=== PATIENT | female | born 1995 | race African-American/Black ===

== ENCOUNTER 2021-01-01 11:13 | Emergency (ER) | payer OTHER ==
[2021-01-01 11:32] VITALS: BP 132/87
[2021-01-01 11:43] LABS: MUDS CUTOFF CONCENTRATIONS CUTOFF CONC BELOW:
[2021-01-01 11:47] LABS: BILIRUBIN,URINE NEGATIVE (NEGATIVE); GLUCOSE, URINE (UA) NEGATIVE (NEGATIVE); KETONES,URINE (UA) NEGATIVE (NEGATIVE); LEUKOCYTE ESTERASE, URINE TRACE (NEGATIVE); NITRITE,URINE NEGATIVE (NEGATIVE); OCCULT BLOOD,URINE TRACE-LYSE (NEGATIVE); PH,URINE 6.5 PH (5.0-7.5); PROTEIN,URINE NEGATIVE (NEGATIVE); UROBILINOGEN,URINE 0.2 (NORMAL) E.U./dL (NORMAL)
[2021-01-01 11:49] LABS: CLARITY,URINE HAZY (CLEAR); HCG UR QUAL NEGATIVE
--- NOTE | 2021-01-01 11:53 | ED Physician Documentation ---
History of Present Illness - Stated complaint Stated Complaint: R ARM LAC/MHE - Chief complaint Chief Complaint: MHE - Additonal information Additional information: 25 -year-old female presents to the emergency department after cutting her left forearm this a.m. She reports that last night she had night terrors and when she woke up she felt numb therefore she cut herself. She received ported this to her command and they brought her to the emergency department. She does have a longstanding history of depression but is not medicated with any medicines at this time. She has been hospitalized for depression in the past but did not find hospitalization or behavioral health helpful. She denies drugs or alcohol. She has quite a flat affect and is not very forthcoming with information. quiet and tearful I have discussed with her that we will likely look to transfer her to [facility] for behavioral health services. 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 Review of Systems Constitutional: reports: Reviewed and negative Eyes: reports: Reviewed and negative Ears: reports: Reviewed and negative Nose: reports: Reviewed and negative Throat: reports: Reviewed and negative Cardiac: reports: Reviewed and negative Respiratory: reports: Reviewed and negative GI: reports: Reviewed and negative : reports: Reviewed and negative Skin: reports: Laceration (s) (superficial cutting) Neurologic: reports: Reviewed and negative Psychiatric: reports: Depressed, Insomnia. denies: Hallucinations, Delusions Endocrine: reports: Reviewed and negative PD PAST MEDICAL HISTORY - Present Medications Home Medications: Ambulatory Orders Medication Instructions Recorded Confirmed No Known Home Medications 01/01/21 01/01/21 - Allergies Allergies/Adverse Reactions: Allergies Allergy/AdvReac Type Severity Reaction Status Date / Time No Known Drug Allergies Allergy Verified 01/01/21 11:32 PD ED PE EXPANDED - General General: Alert, Anxious, Other (tearful, crying, withdrawn) - Neck Neck: Supple w/out meningeal sx. No: Adenopathy - Cardiac Cardiac: Regular Rate, Regular Rhythm, Radial strong equal, Pedal strong equal, Cap refill < 2 sec. No: Murmur Present - Respiratory Respiratory: Clear to ausultation angelica. No: Distress, Labored - Abdomen Abdomen: Normal Bowel sounds. No: Tender to palpation - Derm Derm: Normal color, Warm and dry - Extremities Extremities: Normal. No: Deformity, Tenderness - Neuro Neuro: Alert and Oriented X 3, CNII-XII intact - Psych Psych: Depressed, Tearful, Withdrawn, Poor eye contact, Anxious Results - Vitals Vitals: Vital Signs - 24 hr 01/01/21 11:25 Temperature 36.2 C L Heart Rate 85 Respiratory 20 Rate Blood Pressure 132/87 H O2 Saturation 100 Oxygen O2 Source Room air - Labs Labs: Laboratory Tests 01/01/21 01/01/21 01/01/21 11:40 11:51 11:51 WBC 7.3 RBC 4.20 Hgb 12.9 Hct 38.7 MCV 92.1 MCH 30.7 MCHC 33.3 RDW 12.4 Plt Count 197 MPV 9.8 Neut # (Auto) 5.2 Lymph # (Auto) 1.5 [place] # (Auto) 0.5 Eos # (Auto) 0.0 Baso # (Auto) 0.0 Absolute Nucleated RBC 0.00 Nucleated RBC % 0.0 Sodium 138 Potassium 3.5 Chloride 102 Carbon Dioxide 25 Anion Gap 11.0 BUN 11 Creatinine 0.8 Estimated GFR (MDRD) 87 L Glucose 97 Calcium 9.9 Total Bilirubin 1.1 H AST 18 ALT 17 Alkaline Phosphatase 41 L Total Protein 8.1 Albumin 4.4 Globulin 3.7 Albumin/Globulin Ratio 1.2 Lipase 25 TSH Urine Color YELLOW Urine Clarity HAZY Urine pH 6.5 Ur Specific [place] 1.020 Urine Protein NEGATIVE Urine Glucose (UA) NEGATIVE Urine Ketones NEGATIVE Urine Occult Blood TRACE-LYSE Urine Nitrite NEGATIVE Urine Bilirubin NEGATIVE Urine Urobilinogen 0.2 (NORMAL) Ur Leukocyte Esterase TRACE H Urine RBC None Seen Urine WBC 11-25 H Urine WBC Clumps PRESENT Ur Squamous Epith Cells RARE Squamous Urine Bacteria Rare Ur Microscopic Review INDICATED Urine Culture Comments INDICATED Urine HCG, Qual NEGATIVE Salicylates < 6.0 Urine Opiates Screen NEGATIVE Ur Oxycodone Screen NEGATIVE Urine Methadone Screen NEGATIVE Ur Propoxyphene Screen NEGATIVE Acetaminophen < 10 L Ur Barbiturates Screen NEGATIVE Ur Tricyclics Screen NEGATIVE Ur Phencyclidine Scrn NEGATIVE Ur Amphetamine Screen NEGATIVE U Methamphetamines Scrn NEGATIVE U Benzodiazepines Scrn NEGATIVE Urine Cocaine Screen NEGATIVE U Cannabinoids Screen NEGATIVE Ethyl Alcohol < 5.0 01/01/21 11:51 WBC RBC Hgb Hct MCV MCH MCHC RDW Plt Count MPV Neut # (Auto) Lymph # (Auto) [place] # (Auto) Eos # (Auto) Baso # (Auto) Absolute Nucleated RBC Nucleated RBC % Sodium Potassium Chloride Carbon Dioxide Anion Gap BUN Creatinine Estimated GFR (MDRD) Glucose Calcium Total Bilirubin AST ALT Alkaline Phosphatase Total Protein Albumin Globulin Albumin/Globulin Ratio Lipase TSH 0.71 Urine Color Urine Clarity Urine pH Ur Specific [place] Urine Protein Urine Glucose (UA) Urine Ketones Urine Occult Blood Urine Nitrite Urine Bilirubin Urine Urobilinogen Ur Leukocyte Esterase Urine RBC Urine WBC Urine WBC Clumps Ur Squamous Epith Cells Urine Bacteria Ur Microscopic Review Urine Culture Comments Urine HCG, Qual Salicylates Urine Opiates Screen Ur Oxycodone Screen Urine Methadone Screen Ur Propoxyphene Screen Acetaminophen Ur Barbiturates Screen Ur Tricyclics Screen Ur Phencyclidine Scrn Ur Amphetamine Screen U Methamphetamines Scrn U Benzodiazepines Scrn Urine Cocaine Screen U Cannabinoids Screen Ethyl Alcohol PD MEDICAL DECISION MAKING - ED course Complexity details: reviewed results, re-evaluated patient, d/w patient ED course: 25-year-old female who is active [employer] comes to the emergency department on the advice of her command after she cut herself this a.m. when she reported she had a night terror. She does endorse a longstanding history of depression but is not currently on any medication or seeking therapy. History is somewhat difficult to obtain she is quite tearful withdrawn and has a flat affect. Screening labs are unremarkable. Patient was seen by social work. After lengthy discussion and did offer to be seen at [facility] versus outpatient treatment patient is serenity for safety and desires to be discharged home. Her CO with her will accompany her home and remain through this weekend. [place] to initiate medication management. Patient feels safe for discharge home contracts for safety and does not desire to harm herself or anybody else. Please see the extensive social work notes. Departure - Departure Disposition: 01 Home, Self Care Clinical Impression: Self-cutting of wrist Depression Qualifiers: Depression Type: major depressive disorder Major depression recurrence: unspecified whether recurrent Active/Remission status: currently active Major depression episode severity: unspecified Qualified Code(s): F32.9 - Major depressive disorder, single episode, unspecified Instructions: ED Depression Comments: Please continue [place]. Long-term management of depression often involves talk therapy as well as medications. If at any point you begin to feel hopeless depressed or have thoughts of self-harm please call 911, discuss with your commanding officer or return immediately to the emergency department.
[2021-01-01 11:54] LABS: BASOPHILS % (AUTO) 0.3 %; EOSINOPHILS % (AUTO) 0.6 %; HCT - HEMATOCRIT 38.7 % (37.0-47.0); HGB - HEMOGLOBIN 12.9 g/dL (12.0-16.0); LYMPHOCYTES # (AUTO) 1.5 10^3/uL (1.5-3.5); LYMPHOCYTES % (AUTO) 20.7 %; MEAN CORPUSCULAR HEMOGLOBIN 30.7 pg (27.0-31.0); MEAN CORPUSCULAR HGB CONC 33.3 g/dL (32.0-36.0); MEAN CORPUSCULAR VOLUME 92.1 fL (81.0-99.0); MEAN PLATELET VOLUME 9.8 fL (7.9-10.8); MONOCYTES # (AUTO) 0.5 10^3/uL (0.0-1.0); NEUTROPHILS # (AUTO) 5.2 10^3/uL (1.5-6.6); NEUTROPHILS % (AUTO) 71.1 %; PLT - PLATELET COUNT 197 10^3/uL (130-450); RED CELL DISTRIBUTION WIDTH 12.4 % (12.0-15.0); WHITE BLOOD COUNT 7.3 x10^3/uL (4.8-10.8)
[2021-01-01 12:00] LABS: AMPHETAMINE SCREEN,URINE NEGATIVE (NEGATIVE); BARBITURATE SCREEN,UR NEGATIVE (NEGATIVE); BENZODIAZEPINES SCREEN, URINE NEGATIVE (NEGATIVE); COCAINE SCREEN URINE NEGATIVE (NEGATIVE); METHADONE SCREEN, URINE NEGATIVE (NEGATIVE); METHAMPHETAMINES SCREEN, URINE NEGATIVE (NEGATIVE); OPIATE SCREEN, URINE NEGATIVE (NEGATIVE); OXYCODONE SCREEN, URINE NEGATIVE (NEGATIVE); PROPOXYPHENE SCREEN, URINE NEGATIVE (NEGATIVE); THC CANNABINOID SCREEN, URINE NEGATIVE (NEGATIVE); TRICYCLIC ANTIDEPRESSANT,URINE NEGATIVE (NEGATIVE)
[2021-01-01 12:13] LABS: BACTERIA,URINE Rare /HPF (None Seen); RBC,URINE None Seen /HPF (0-5); SQUAMOUS EPITHELIAL CELL,UR RARE Squamous (<= Few); WBC CLUMPS,URINE PRESENT
[2021-01-01 12:15] LABS: ACETAMINOPHEN < 10 ug/mL (10-30); ALBUMIN 4.4 g/dL (3.2-5.5); ALBUMIN/GLOBULIN RATIO 1.2 (1.0-2.2); ALKALINE PHOSPHATASE 41 IU/L (42-121); ALT ALANINE AMINOTRANSFERASE 17 IU/L (10-60); AST ASPARTATE AMINOTRANSFERASE 18 IU/L (10-42); BILIRUBIN,TOTAL 1.1 mg/dL (0.2-1.0); BUN - BLOOD UREA NITROGEN 11 mg/dL (6-20); CALCIUM 9.9 mg/dL (8.5-10.3); CARBON DIOXIDE - CO2 25 mmol/L (21-32); CHLORIDE 102 mmol/L (101-111); CREATININE 0.8 mg/dL (0.4-1.0); ETOH - ETHANOL < 5.0 mg/dL; GFR - MDRD 87 (>89); GLUCOSE 97 mg/dL (70-100); LIPASE 25 U/L (22-51); POTASSIUM 3.5 mmol/L (3.5-5.0); SALICYLATE < 6.0 mg/dL; SODIUM 138 mmol/L (135-145); TOTAL PROTEIN 8.1 g/dL (6.7-8.2)
== END 2021-01-01 14:19 | disposition home or self-care (01) ==
LOC: ED 11:13
DX: S61.512A Laceration without foreign body of left wrist, initial encounter (principal); X78.1XXA Intentional self-harm by knife, initial encounter; X78.8XXA Intentional self-harm by other sharp object, initial encounter; F32.9 Major depressive disorder, single episode, unspecified
CPT/HCPCS: 80053; 80306; 80307; 80320; 80329; 81001; 81003; 81025; 83690; 84443; 85025; 87077; 87086; 99283

== ENCOUNTER 2022-03-07 21:38 | Emergency (ER) | payer OTHER ==
[2022-03-07] MEDS ORDERED: SODIUM CHLORIDE 0.9% 1,000 ML IV STA (22:56)
[2022-03-07] MEDS ORDERED: KETOROLAC 30 MG/ML VIAL IVP STA (23:00)
--- NOTE | 2022-03-07 23:16 | ED Physician Documentation ---
History of Present Illness - Stated complaint Stated Complaint: ARM AND SPINE NUMBNESS - Chief complaint Chief Complaint: Neuro - History obtained from History obtained from: Patient - Additonal information Additional information: Patient is a 26-year-old female presenting for evaluation of pain numbness and weakness in her right arm which is been present since Monday. Patient reports feeling a pain from her neck into her right arm that extends to the elbow Which started on Monday. She additionally reports feeling numbness to the entirety of the right arm and weakness since Monday. She notes being at the [employer] this weekend and was trying to use a fork and knife and was having difficulty using the utensils with her right hand. She denies any known trauma or injury. She did clean her house but denies doing anything strenuous. She reports having a similar episode when she was 16 years old but states the numbness and weakness was worse in the right arm Than it is currently. She was hospitalized in [place] for 1 month and believes she received steroids. She believes there was a "spot" on her spine. She has not had any other symptoms since then and is unsure of what she was diagnosed with if anything. I asked if she had ever heard of multiple sclerosis and patient denies ever hearing this term. She denies a history of autoimmune conditions in other family members.She does report having a Generalized Throbbing headache since Monday.She denies any leg weakness,Saddle anesthesia, Lower back pain, bowel or bladder incontinence.Her at the bedside states he pinched her arm really hard on Monday and she was not able to feel it at all.She has tried Tylenol and ibuprofen without any improvement in her symptoms. She denies chest pain or difficulty breathing or abdominal complaints. She denies any symptoms to her left side. She denies visual deficits. Review of Systems Constitutional: denies: Fever Eyes: denies: Loss of vision Nose: denies: Congestion Cardiac: denies: Chest pain / pressure Respiratory: denies: Dyspnea, Cough GI: denies: Abdominal Pain, Vomiting : denies: Dysuria Skin: denies: Rash Musculoskeletal: reports: Neck pain Neurologic: reports: Focal weakness, Numbness, Headache. 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 Other Past Medical History: h/o lesion on spine - Past Surgical History Past Surgical History: No - Present Medications Home Medications: Ambulatory Orders Medication Instructions Recorded Confirmed predniSONE [Deltasone] 10 mg PO [id number] #42 tab 03/08/22 - Allergies Allergies/Adverse Reactions: Allergies Allergy/AdvReac Type Severity Reaction Status Date / Time No Known Drug Allergies Allergy Verified 03/07/22 21:42 - Social History Does the pt smoke?: No Smoking Status: Never smoker Does the pt drink ETOH?: Yes Does the pt have substance abuse?: No - Immunizations Immunizations are current?: Yes - POLST Patient has POLST: No PD ED PE NORMAL - General General: Alert and oriented X 3, No acute distress, Well developed/nourished - HEENT HEENT: Atraumatic, PERRL, EOMI - Neck Neck: Supple, no meningeal sign, No bony TTP - Cardiac Cardiac: RRR, No murmur, Strong equal pulses - Respiratory Respiratory: No respiratory distress, Clear bilaterally - Abdomen Abdomen: Normal bowel sounds, Soft, Non tender - Back Back: No spinal TTP - Derm Derm: Warm and dry, No rash - Extremities Extremities: No deformity, No tenderness to palpate, No edema, Other (Distal pulses intact) - Neuro Neuro: Alert and oriented X 3, reading recovery teacher 2-12 intact, Normal speech, Other (Abnormal sensation to entirety of right arm including hand, strong radial pulse, 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 No: No motor deficit, No sensory deficit Eye Opening: Spontaneous Motor: Obeys Commands Verbal: Oriented GCS Score: 15 - Psych Psych: Normal mood Results - Vitals Vitals: Vital Signs - 24 hr 03/07/22 03/07/22 03/08/22 21:42 22:11 01:00 Temperature 36.5 C Heart Rate 90 87 91 Respiratory 16 14 18 Rate Blood Pressure 140/84 H 130/83 H 119/81 H O2 Saturation 99 100 100 03/08/22 03/08/22 03/08/22 01:07 03:00 05:00 Temperature 36.8 C Heart Rate 85 85 81 Respiratory 10 L 12 18 Rate Blood Pressure 112/65 118/90 H 109/69 O2 Saturation 98 100 100 03/08/22 03/08/22 03/08/22 07:00 09:00 11:00 Temperature 36.6 C Heart Rate 76 82 99 Respiratory 17 18 16 Rate Blood Pressure 96/55 L 105/72 127/86 H O2 Saturation 100 97 100 03/08/22 13:00 Temperature Heart Rate 75 Respiratory 19 Rate Blood Pressure 130/80 O2 Saturation 100 Oxygen O2 Source Room air - EKG (time done) 2303 Rate: Rate (enter#) (92) Rhythm: NSR [place]: Normal Ischemia: No: ST elevation c/w ischemia - Labs Labs: Laboratory Tests 03/07/22 03/07/22 03/07/22 23:05 23:05 23:30 WBC 10.0 RBC 4.11 L Hgb 12.7 Hct 37.2 MCV 90.5 MCH 30.9 MCHC 34.1 RDW 12.5 Plt Count 218 MPV 9.9 Neut # (Auto) 7.7 H Lymph # (Auto) 1.6 [place] # (Auto) 0.7 Eos # (Auto) 0.1 Baso # (Auto) 0.0 Absolute Nucleated RBC 0.00 Nucleated RBC % 0.0 Sodium 139 Potassium 4.1 Chloride 104 Carbon Dioxide 22 Anion Gap 13.0 BUN 11 Creatinine 1.0 Estimated GFR (MDRD) 81 L Glucose 95 Calcium 9.0 Total Bilirubin 0.8 AST 24 ALT 29 Alkaline Phosphatase 38 L Total Protein 7.7 Albumin 4.0 Globulin 3.7 Albumin/Globulin Ratio 1.1 Urine HCG, Qual NEGATIVE PD MEDICAL DECISION MAKING - ED course Complexity details: re-evaluated patient, d/w patient ED course: 1214 - Pain has improved but objective weakness still present. MRIs ordered to evaluate for central process such as MS given exam and history. MRI Unavailable at this time of night And we do not have neurology services. Will call to other [facility] hospitals to try and transfer for Expedited MRI. 1240 - No [facility] hospitals have MRI availabilities at this hour or capacity for patient to be transferred. Patient will wait in our emergency department pending MRIs in the morning which have been ordered. Her symptoms have been ongoing since Monday and have not worsened over the last 2 days.We will hold on high-dose steroids at this time as etiology is still unclear. Per patient she was able to speak with mother and diagnosis was unclear when patient was a teenager. Patient is in agreement to board in our emergency department pending MRIs.Her pain has improved but other symptoms remain included weakness with repeat motor testing. Pt signed out to Dr. Landers in AM to follow up MRIs. Departure - Departure Disposition: 01 Home, Self Care Clinical Impression: Right arm weakness Degenerative joint disease of cervical spine Qualifiers: Spinal osteoarthritis complication: with radiculopathy Qualified Code(s): M47.22 - Other spondylosis with radiculopathy, cervical region Condition: Stable Instructions: Spine Disk Common Probs, ED Cervical Radiculopathy Prescriptions: predniSONE [Deltasone] 10 mg PO [id number] #42 tab Comments: Your MRIs do not show any major or concerning findings in your brain or spine. You do have some premature degeneration, or early arthritis, at the level of y our fourth and fifth cervical vertebrae. Most likely, this is causing some nerve impingement as the nerves exit the space between the vertebrae, and this is most likely to be the cause of your symptoms. Steroids and anti- inflammatories are usually the best treatment for this, as his follow-up with an orthopedist who specializes in the spine. We will start you on the steroids course today. Please talk to your primary doctor about follow-up with the ultrasound applications specialist to determine whether there is any further intervention that can be of help. Discharge Date/Time: 03/08/22 13:50
[2022-03-07 23:32] LABS: BASOPHILS % (AUTO) 0.3 %; EOSINOPHILS # (AUTO) 0.1 10^3/uL (0.0-0.7); EOSINOPHILS % (AUTO) 0.7 %; HCT - HEMATOCRIT 37.2 % (37.0-47.0); HGB - HEMOGLOBIN 12.7 g/dL (12.0-16.0); LYMPHOCYTES # (AUTO) 1.6 10^3/uL (1.5-3.5); LYMPHOCYTES % (AUTO) 15.7 %; MEAN CORPUSCULAR HEMOGLOBIN 30.9 pg (27.0-31.0); MEAN CORPUSCULAR HGB CONC 34.1 g/dL (32.0-36.0); MEAN CORPUSCULAR VOLUME 90.5 fL (81.0-99.0); MEAN PLATELET VOLUME 9.9 fL (7.9-10.8); MONOCYTES # (AUTO) 0.7 10^3/uL (0.0-1.0); MONOCYTES % (AUTO) 6.6 %; NEUTROPHILS # (AUTO) 7.7 10^3/uL (1.5-6.6); NEUTROPHILS % (AUTO) 76.5 %; PLT - PLATELET COUNT 218 10^3/uL (130-450); RED BLOOD COUNT 4.11 10^6/uL (4.20-5.40); RED CELL DISTRIBUTION WIDTH 12.5 % (12.0-15.0)
[2022-03-07 23:42] LABS: ALBUMIN/GLOBULIN RATIO 1.1 (1.0-2.2); BILIRUBIN,TOTAL 0.8 mg/dL (0.2-1.0); POTASSIUM 4.1 mmol/L (3.5-5.0); TOTAL PROTEIN 7.7 g/dL (6.7-8.2)
[2022-03-07 23:45] LABS: HCG UR QUAL NEGATIVE
--- NOTE | 2022-03-07 23:49 | CT Report ---
PROCEDURE: HEAD WO INDICATIONS: R arm weak/numb for days TECHNIQUE: Noncontrast 5 mm thick angled axial sections acquired from the foramen magnum to the vertex. For rad iation dose reduction, the following was used: automated exposure control, adjustment of mA and/or k V according to patient size. COMPARISON: None. FINDINGS: Image quality: Excellent. CSF spaces: Basal cisterns are patent. No extra-axial fluid collections. Ventricles are normal in size and shape. Brain: No intracranial hemorrhage, mass, or mass effect. Walsh-white matter interface appears preser bradley. Skull and face: Calvarium and visualized facial bones are intact, without suspicious lesions. Sinuses: Visualized sinuses and mastoids are clear. IMPRESSION: 1. No acute intracranial abnormality. Reviewed by: Evan Chi MD on 03/07/2022 11:48 PM PDT Approved by: Evan Chi MD on 03/07/2022 11:48 PM PDT Station ID: [id number]
--- NOTE | 2022-03-07 23:51 | CT Report ---
PROCEDURE: CERVICAL SPINE WO INDICATIONS: Right arm numbness and weakness. history of same episode at 16, hosp 1 month TECHNIQUE: Noncontrast 3 mm thick sections acquired from the skull base to the T4 level. Sagittal and coronal r eformats were then constructed. For radiation dose reduction, the following was used: automated exp osure control, adjustment of mA and/or kV according to patient size. COMPARISON: None. FINDINGS: Image quality: Excellent. Bones: No fractures or subluxation. There is mild reversal of cervical lordosis. Visualized superior ribs are intact. Soft tissues: Prevertebral soft tissues are normal in thickness. No paravertebral hematomas. No ap ical pneumothoraces. IMPRESSION: 1. No fracture or subluxation. If clinical concern persists, consider further evaluation with MRI. Reviewed by: Evan Chi MD on 03/07/2022 11:50 PM PDT Approved by: Evan Chi MD on 03/07/2022 11:50 PM PDT Station ID: [id number]
[2022-03-08] MEDS ORDERED: KETOROLAC 15 MG/ML VIAL IVP STA (04:48)
[2022-03-08] MEDS ORDERED: HYDROcod/ACETAM 5/325 MG TABLET PO STA (10:43)
[2022-03-08] MEDS ORDERED: DEXAMETHASONE 10 MG/ML VIAL IV STA (10:44)
[2022-03-08] MEDS ORDERED: GADOBUTROL 7.5 MMOL/7.5 ML VIAL ONE (11:17)
--- NOTE | 2022-03-08 13:10 | MRI Report ---
PROCEDURE: Brain W/WO INDICATIONS: R arm weakness, numbness CONTRAST: IV CONTRAST: Gadavist ml: 7.5 TECHNIQUE: Noncontrast axial T1 spin echo, axial T2 fast spin echo, sagittal and axial FLAIR, coronal T2 fast sp in echo, axial gradient echo, axial diffusion and ADC through the brain. After the administration of contrast, axial and coronal T1 spin echo with fat saturation through the brain. COMPARISON: Correlation is made with the prior head CT, 01/05/2022 as well as the complete cervical s pine MRI, 03/08/2022. FINDINGS: Image quality: Excellent. CSF spaces: Basal cisterns are patent. No extra-axial fluid collections. Ventricles are normal in size and shape. Brain: No midline shift. No intracranial bleeds or masses. No abnormal intracranial enhancement. There is cerebral volume loss for age. There is periventricular white matter chronic small vessel is chemic change. The brainstem appears normal. Diffusion-weighted images demonstrate no acute ischemi c insults. No chronic ischemic insults. Normal intravascular flow voids are present. Skull and face: Calvarial marrow is normal in signal. Orbits appear normal. Sinuses: Sinuses and mastoids appear clear. IMPRESSION: No imaging explanation is found for the patient's presenting symptoms. No findings of acute or subacute infarction are seen. No masses or abnormal enhancement can be seen. Reviewed by: Ramon Ruiz MD on 03/08/2022 12:08 PM FROY Approved by: Ramon Ruiz MD on 03/08/2022 12:08 PM FROY Station ID: [id number]
--- NOTE | 2022-03-08 13:14 | MRI Report ---
PROCEDURE: Cervical Spine W/WO INDICATIONS: R arm weak/numb CONTRAST: IV CONTRAST: Gadavist ml: 7.5 TECHNIQUE: Noncontrast sagittal T1 spin echo and T2 fast spin echo, sagittal STIR, sagittal PD fast spin echo, f oraminal oblique sagittal T2 fast spin echo, axial gradient echo or T2 fast spin echo through the cer vical spine. After the administration of contrast, sagittal and axial T1 spin echo with fat saturati on through the cervical spine. COMPARISON: Correlation is made with the prior cervical spine CT 03/07/2022 as well as the [facility] brain MRI, 03/08/2022. FINDINGS: Image quality: Excellent. Alignment and curvature: There is straightening of the normal cervical lordosis. No significant AP alignment abnormality can be seen. Marrow: Marrow demonstrates normal overall signal. Spinal cord: Visualized spinal cord is normal in size, without white matter lesions. No suspicious intramedullary enhancement. No cerebellar tonsillar herniation. Paraspinous soft tissues: No paravertebral masses or suspicious enhancement. C2-C3: No significant abnormality is seen. C3-C4: The disc height and disc signal are well preserved. Mild disc osteophyte complex is seen. There is mild left-sided and no right-sided neuroforaminal narrowing. No significant central canal na rrowing is seen. C4-C5: The disc height and disc signal are relatively well-preserved. Mild disc bulge is seen, with a central disc osteophyte protrusion. No neuroforaminal narrowing is seen. Mild to moderate central c anal narrowing is seen, with minimal mass effect upon the ventral spinal cord, as on series 401 image 9 and on series 700 image 19. C5-C6: Normal in appearance. C6-C7: Normal in appearance. C7-T1: Normal in appearance. IMPRESSION: Premature cervical spine degenerative changes are seen, which are worst at the C4-C5 level. Reviewed by: Ramon Ruiz MD on 03/08/2022 12:13 PM FROY Approved by: Ramon Ruiz MD on 03/08/2022 12:13 PM FROY Station ID: [id number]
--- NOTE | 2022-03-08 13:34 | ED Physician Documentation ---
ED Addendum - Addendum Addendum: 03/08/22 13:33 The patient was signed out to me by Dr. Castro at change of shift, pending MRIs of the brain and cervical spine after developing radicular symptoms a few days ago. The patient was without complaints during her stay in the emergency department. She was sent for her MRIs and found to have premature degenerative joint disease of C4 and C5 but otherwise was without findings. I discussed the findings with both the patient and her mother, who is a neurosurgeon. We have discussed possible follow-up with a incident response specialist to determine what the patient's options might be for any further intervention. I have placed her on a prednisone taper. We have discussed the usual indications for return. Final impression: 1. Premature degenerative joint disease of the cervical spine 2. Cervical radiculopathy Disposition: Home in stable condition.
[2022-03-08 13:40] VITALS: BP 130/80
[2022-03-08] MEDS ORDERED: GADOBUTROL 7.5 MMOL/7.5 ML VIAL IVP ONE (16:18)
== END 2022-03-08 13:50 | disposition home or self-care (01) ==
LOC: ED 21:38
DX: M47.22 Other spondylosis with radiculopathy, cervical region (principal)
CPT/HCPCS: 36415; 70450; 70553; 72125; 72156; 80053; 81025; 85025; 93005; 96374; 96376; 99284; A9270; A9585